=== PATIENT | male | born 2000 | race Caucasian/White ===

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

== ENCOUNTER → 2018-02-22 11:13 | Outpatient (CLI) | payer OTHER, SELFPAY | PROVIDERS: Family Provider Family Medicine; PCP Family Medicine; Visit Provider Specialist | DX: Z91.038 Other insect allergy status (principal) | CPT/HCPCS: 83520 ==

== ENCOUNTER 2018-03-16 00:27 | Emergency (ER) | payer OTHER, SELFPAY ==
[2018-03-16 00:28] VITALS: BP 137/79; PULSE 93; RESP 17; TEMP 37.1; O2SAT 100; BMI 23.2
--- NOTE | 2018-03-16 01:04 | CT_ITS ---
STUDY: CT ABDOMEN AND PELVIS WITH CONTRAST REASON FOR EXAM: Male, 17 years old. Abdominal pain with bright red diarrhea and elevated white blood cell count. RADIATION DOSAGE (If Supplied By Facility): CTDIvol = ( 12.64 ) mGy, DLP = ( 425.26 ) mGycm TECHNIQUE: Transaxial images were obtained from the dome of the diaphragm to the symphysis pubis without oral contrast. 100ML ml of Isovue 300 contrast was administered. Sagittal and coronal images were reconstructed. Individualized dose optimization techniques were used for this CT. COMPARISON: 07/10/2011. FINDINGS: The visualized lung bases are unremarkable. The visualized portions of the heart are within normal limits. Normal liver. Normal gallbladder and extrahepatic biliary system. There is mild splenomegaly. Normal pancreas. Normal bilateral adrenal glands. Normal right kidney. Normal left kidney. Normal visualized stomach. Normal small intestine. There is fecal retention. Oral contrast has not yet to the colon and the evaluation of the colon is somewhat limited. There is non-visualization of the appendix. There are few small nodes in the right lower quadrant. Normal abdominal aorta. Normal inferior vena cava. Normal retroperitoneum. Normal urinary bladder. There is small amount of free fluid in the pelvis. Normal abdominal wall. Normal osseous structures. CT/Abdomen/Pelvis WITH Contrast IMPRESSION: 1. Fecal retention. 2. The appendix is not definitely identified. 3. Few nodes in the right lower quadrant. 4. Free fluid in the pelvis. No drainable abscess is seen. 5. If symptoms persist, follow-up examination is recommended. Electronically Signed: Venkatesh Jimenez MD at 2:59 EDT Tel , Service support ,
--- NOTE | 2018-03-16 01:06 | ED.VIS.GEN ---
History of Present Illness Chief Complaint: Abd Pain Informant: Patient, Family Onset: Month(s) - 5 Context: Gradual Onset Timing: Intermittent Quality: ache, cramp Location: R side Current Severity: Moderate Maximum Severity: Severe Worsened by: nothing Relieved by: after diarrhea most of the time, but not x 2d Associated Symptoms: 2 episodes of BRBPR yesterday Narrative: Patient has been having abdominal discomfort, intermittent diarrhea which is a couple times a day on days that he has it, today he had 2 bouts of bloody diarrhea which is the first time that has happened. He has been malaised and having 5-10 pound weight loss in the past 2 months. Occasional nausea, he was nauseated earlier, but no emesis. No discomfort into his back. No urinary difficulty. Has not seen a doctor for any of this yet. Healthy otherwise prior to this. Past Medical History - Allergies and Home Meds Allergies/Adverse Reactions: Allergies amoxicillin Allergy (Verified 03/16/18 00:32) Anaphylaxis bee venom protein (honey bee) Allergy (Verified 03/16/18 00:32) Anaphylaxis Primary Care Physician: Edmundo Jimenez MD [Primary Care Provider] - Lives: With Family Smoking Status: Never smoker Drugs: None Review of Systems General: Reports: Malaise, Weight loss. Denies: Chills, Fever, Sweats Eyes: Denies: Visual changes - bilaterally, Diplopia ENT: Denies: Rhinorrhea, Sore throat Cardiovascular: Denies: Chest pain, Palpitations Respiratory: Denies: Dyspnea, Cough, Dyspnea on exertion Gastrointestinal: Reports: Abdominal pain, Nausea, Diarrhea, Hematochezia. Denies: Vomiting, Constipation, Melena Genitourinary: Denies: Dysuria, Hematuria, Frequency Musculoskeletal: Denies: Neck pain, Back pain, Extremity Pain Skin: Denies: Rash Neurological: Denies: Headache, Weakness, Numbness Physical Exam Vital Signs/Narrative: Vital Signs Temp Pulse Resp BP Pulse Ox 03/16/18 00:28 98.8 F 93 17 137/79 H 100 Inital Vital Signs reviewed: Yes General: Well nourished, Well developed Head: Normocephalic, Atraumatic Eyes: Perrl, EOMI ENT: Moist mucous membranes, No rhinorrhea Neck: Supple, Nontender Cardiovascular: Regular rate, Regular rhythm, No murmurs Respiratory: No distress, CTA bilaterally, Chest nontender Abdomen: Soft, Nondistended, No masses, Tender - Mildly throughout right lower quadrant, more of the tenderness is caudal to McBurney's point. No right upper quadrant tenderness, the rest of his abdominal exam is fairly benign., Hyperactive bowel sounds. Negative for: Guarding, Rebound tenderness Back: Nontender, Normal Inspection Extremities: Nontender, No edema Skin: Normal color, No rash Neurological: Alert, Oriented x3, Cranial nerves II-XII grossly intact, Normal Strength, Normal Sensation Psychological: Normal affect Diagnostic/Tx/Re-eval Laboratory Tests 03/16/18 03/16/18 03/16/18 Range/Units 01:30 01:20 01:20 WBC 14.5 H (4.4-11.0) K/mm3 RBC 4.93 (4.6-6.2) M/mm3 Hgb 14.6 (13.0-16.5) g/dl Hct 44.1 (40-54) % MCV 89.5 (80-94) fL MCH 29.6 (27.0-32.0) pg MCHC 33.1 (32-36) g/gl RDW 13.0 (11.6-14.6) % RDW Differential 42.1 (35.1-43.9) fl Plt Count 219 (150-450) K/mm3 MPV 9.7 (6.2-12.0) fl Immature Gran % (Auto) 0.100 (0.0-0.9) % Neut % (Auto) 73.2 H (47-70) % Lymph % (Auto) 11.1 L (19-41) % Bea[place]gard % (Auto) 13.3 H (0-10) % Eos % (Auto) 2.1 (0-5) % Baso % (Auto) 0.2 (0-1) % Absolute Neuts (auto) 10.6 H (2.0-7.7) X10^3/uL Absolute Lymphs (auto) 1.61 (0.83-4.51) X10^3/ul Total Counted Not Reportable Differential Comment SCANNED Diff Path Review September foll Sodium 140 (136-145) mmol/L Potassium 3.9 (3.5-5.1) mmol/L Chloride 103 (98-107) mmol/L Carbon Dioxide 34.0 H (21.0-32.0) mmol/L Anion Gap 3 L (5-15) BUN 8 (7-18) mg/dL Creatinine 1.00 (0.70-1.30) mg/dL Estim Creat Clear Calc 114.95 ml/min Est GFR (MDRD) Af Amer 123 (>60) mL/min Est GFR (MDRD) Non-Af 102 (>60) mL/min BUN/Creatinine Ratio 8.0 L (10-20) RATIO Glucose 100 (74-106) mg/dL Calcium 9.1 (8.5-10.1) mg/dL Total Bilirubin 1.10 H (0.20-1.00) mg/dL AST 14 L (15-37) U/L ALT 25 (16-61) U/L Alkaline Phosphatase 67 (45-117) U/L Total Protein 7.5 (6.4-8.2) g/dL Albumin 4.0 (3.2-5.0) g/dL Globulin 3.5 (2.2-4.2) g/dL Albumin/Globulin Ratio 1.1 (0.9-2.4) RATIO Lipase 91 (73-393) U/L Urine Color Yellow (Yellow) Urine Clarity Sl. Cloudy (Clear) Urine pH 8.0 (5.0 - 8.0) Ur Specific [place] 1.015 (1.002-1.030) Urine Protein Negative (Negative) mg/dl Urine Glucose (UA) Normal (Normal) mg/dl Urine Ketones Negative (Negative) mg/dl Urine Occult Blood Negative (Negative) /ul Urine Nitrite Negative (Negative) Urine Bilirubin Negative (Negative) mg/dL Urine Urobilinogen Normal (Normal) mg/dl Ur Leukocyte Esterase Negative (Negative) /ul Urine RBC 0 SEEN (0-5) /hpf Urine WBC 0 SEEN (0-5) /hpf Ur Squamous Epith Cells 0-5 SEEN (0-5) /hpf Amorphous Sediment 3+ PHOS Urine Bacteria 0 SEEN (None Seen) /hpf Urine Mucus 0 SEEN (<or=2+) /hpf Clinical Impression(s) from Imaging Studies Abdomen/Pelvis CT 03/16/18 01:04 IMPRESSION: 1. Fecal retention. 2. The appendix is not definitely identified. 3. Few nodes in the right lower quadrant. 4. Free fluid in the pelvis. No drainable abscess is seen. 5. If symptoms persist, follow-up examination is recommended. Electronically Signed: Venkatesh Jimenez MD at 2:59 EDT Tel , Service support , - Medical Decision Making Labs show nonspecific leukocytosis of 14.5. With the chronicity of his symptoms, my first concern is with possible inflammatory bowel disease. With the possible complications of that, I thought a CT was most appropriate in order to rule out the most pathology. This was performed with oral and IV contrast, and it shows nonspecific findings including some free fluid in the pelvis without any drainable abscess, fecal retention, and some lymphadenopathy in the right lower quadrant. He had a CT in the past that showed mesenteric lymphadenopathy, but I do not know if that simply is causing all of this. I think he will need follow-up with gastroenterology. Treated here with Bentyl, IV fluids, Toradol, he did have some improvement of rested comfortably. Recommend close outpatient follow-up and will give him a prescription for Bentyl to use as needed. ED Disposition - Plan for ED Patient: Disposition: Home or Assisted Living Chief Complaint: Abd Pain Diagnosis: Chronic diarrhea, RLQ abdominal pain, Hematochezia Instructions: ED Abdominal Pain Unkn Cause Prescriptions: Dicyclomine HCl [Bentyl] 20 mg PO TID PRN #20 cap PRN Reason: abdominal pain Referrals: Edmundo Jimenez MD [Primary Care Provider] - As soon as possible Zhen Rudd MD [NON-STAFF] - As soon as possible (call to see if taking new patients)
[2018-03-16] MEDS: Dicyclomine 20 MG/2 ML Vial IM (01:22)
[2018-03-16] MEDS: Ondansetron 4 MG/2 ML Vial IV (01:22)
[2018-03-16] MEDS: Ketorolac 30 MG/ML Syringe IV (01:22)
[2018-03-16] MEDS: 0.9% Normal Saline 1,000 ML 1000 ML IV (01:22)
[2018-03-16 01:33] LABS: Bacteria 0 SEEN /hpf (None Seen); Mucous, Urine 0 SEEN /hpf (<or=2+); Red Blood Cells-Urine 0 SEEN /hpf (0-5); White Blood Cells 0 SEEN /hpf (0-5)
[2018-03-16 01:36] LABS: Color, Urine Yellow (Yellow); Glucose, Dipstick Normal (Normal); Ketone-Dipstick Negative (Negative); Leukocyte Esterase-Dipstick Negative /ul (Negative); Nitrite-Dipstick Negative (Negative); Occult Blood-Urine Negative /ul (Negative); Protein-Dipstick Negative (Negative); Specific Gravity, Urine 1.015 (1.002-1.030); Urine Bilirubin Dipstick Negative (Negative); Urine Clarity Sl. Cloudy (Clear); Urine Urobilinogen Normal (Normal)
[2018-03-16 01:41] LABS: Absolute Lymphocyte Count 1.61 X10^3/ul (0.83-4.51); Absolute Neutrophil Count 10.6 X10^3/uL (2.0-7.7); Basophil# 0.03 X10^3/uL; Basophil% 0.2 % (0-1); Eosinophil# 0.31 X10^3/uL; Eosinophils% 2.1 % (0-5); Hematocrit 44.1 % (40-54); Hemoglobin 14.6 g/dl (13.0-16.5); Lymphocyte # 1.61 X10^3/ul (4.0); Lymphocyte % 11.1 % (19-41); Mean Corp Hgb Conc 33.1 g/gl (32-36); Mean Corpuscular Hgb 29.6 pg (27.0-32.0); Mean Corpuscular Volume 89.5 fL (80-94); Mean Platelet Vol. 9.7 fl (6.2-12.0); Monocyte# 1.93 X10^3/uL; Monocyte% 13.3 % (0-10); Neutrophil # 10.61 X10^3/uL (2.7-7.7); Neutrophil % 73.2 % (47-70); Platelet Count 219 K/mm3 (150-450); RBC Distribution Width SD 42.1 fl (35.1-43.9); Red Blood Count 4.93 M/mm3 (4.6-6.2); White Blood Count 14.5 K/mm3 (4.4-11.0)
[2018-03-16 01:42] LABS: Differential Indicated SCAN CRITERIA MET; POSITIVE COUNT NO; POSITIVE DIFFERENTIAL YES; POSITIVE MORPHOLOGY NO
[2018-03-16 01:42] LABS: Squamous Epithelial Cells - UA 0-5 SEEN /hpf (0-5)
[2018-03-16 01:43] LABS: Amorphous Sediment 3+ PHOS
[2018-03-16 01:50] LABS: ALB/GLOB Ratio 1.1 RATIO (0.9-2.4); AST(SGOT) 14 U/L (15-37); Alanine Aminotransfer ALT/SGPT 25 U/L (16-61); Alkaline Phosphatase 67 U/L (45-117); Anion Gap 3 (5-15); BUN 8 mg/dL (7-18); Calcium,Total 9.1 mg/dL (8.5-10.1); Chloride 103 mmol/L (98-107); EST Glomerular Filtration Rate 102 mL/min (>60); Est Glom Filt Rate - Afr Amer 123 mL/min (>60); Estimated Creatinine Clearance 114.95 ml/min; Globulin 3.5 g/dL (2.2-4.2); Glucose 100 mg/dL (74-106); Lipase 91 U/L (73-393); Potassium 3.9 mmol/L (3.5-5.1); Protein, Total 7.5 g/dL (6.4-8.2); Sodium Level 140 mmol/L (136-145)
[2018-03-16 01:59] LABS: Differential Comment SCANNED
[2018-03-16 03:23] VITALS: BP 120/60; PULSE 70; RESP 18; O2SAT 97
[2018-03-16 12:36] LABS: Pathologist Review Reviewed
== END 2018-03-16 03:26 | disposition home or self-care (01) ==
PROVIDERS: Emergency Provider Emergency Medicine; Family Provider Family Medicine; PCP Family Medicine
DX: R10.31 Right lower quadrant pain (principal); R19.7 Diarrhea, unspecified; K92.1 Melena; R11.0 Nausea; R59.1 Generalized enlarged lymph nodes
CPT/HCPCS: 74177; 80053; 81001; 83690; 85025; 96372; 96374; 96375; 99284; J7030; Q9967; J2405

== ENCOUNTER 2018-04-21 05:31 | Day surgery (SDC) | payer OTHER, SELFPAY ==
[2018-04-21] VITALS (15 sets, daily range): BP systolic 95–119; BP diastolic 59–89; PULSE 52–70; RESP 16–20; TEMP 36.6–36.9; O2SAT 94–100; BMI 24.2
--- NOTE | 2018-04-21 | EGD_PTH ---
PATIENT: ART JENNINGS LOC: EN U#:[id number] AGE/SX: 18/M ROOM: RE04/21/[address]: Dr. Alber Dubois MD : 2000 BED: DIS: 04/21/2018 SPEC #: [id number] RECD: 04/21/18 11:04 STATUS: VESTA GINO #: [id number] WENDI: 04/21/18 00:[address]: Alber Dubois DEPT: SURGICAL PATHOLOGY RECD BY: Tommie Michelle ENTERED: 04/21/18 11:05 SP TYPE: EGD BIOPSY OT DR: Dr. Edmundo Jimenez MD Tissues: A - Duodenum, NOS B - Gastric mucous membrane C - Esophageal mucous membrane D - Esophageal mucous membrane E - COLON BIOPSY Procedures: Special Stain Group II Surgery Specimen Level IV Alcian Blue/PAS (control) HEADER OPERATION: Colonoscopy, EGD (MOD) PRE-OP DIAGNOSIS: Right quadrant pain, hematochezia TISSUE SUBMITTED: A - Biopsy duodenum, B - Biopsy gastric antrum, H. pylori and path, C - Biopsy distal esophagus, D - Biopsy mid esophagus, E - Biopsy random colon MICROSCOPIC DIAGNOSIS A. Duodenum, biopsy: A fragment of duodenal mucosa with [place]'s gland hyperplasia and nonspecific chronic inflammation. B. Gastric antrum, biopsy: Mild gastritis. See microscopic description and comment. C. Distal esophagus, biopsy: Fragments of gastroesophageal mucosa with chronic inflammation. Intestinal metaplasia (goblet cell metaplasia) is not identified. See comment. D. Mid esophagus, biopsy: A fragment of squamous epithelium, no pathologic diagnosis. E. Colon, random biopsy: Fragments of colonic mucosa, no pathologic diagnosis. SJ:simeon 04/23/18 COMMENT B. The results of immunohistochemistry for Helicobacter pylori will be reported separately ([id number]). C. Alcian blue/PAS stain with matched control is used in the evaluation of the specimen. MICROSCOPIC DESCRIPTION Slides are reviewed. B. The specimen shows fragments of gastric mucosa with chronic inflammatory cell infiltrates in the lamina propria consisting of lymphocytes and plasma cells, consistent with mild chronic gastritis. GROSS DESCRIPTION A - Received in fixative is one container labeled with the patient's name and designated biopsy duodenum. The specimen consists of one irregular fragment of light campos soft tissue that measures 0.4 x 0.2 x 0.1 cm. The specimen is totally submitted in one cassette. B - Received in fixative is one container labeled with the patient's name and designated biopsy gastric antrum. The specimen consists of one irregular fragment of light campos soft tissue that measures 0.5 x 0.2 x 0.1 cm. The specimen is totally submitted in one cassette. C - Received in fixative is one container labeled with the patient's name and designated biopsy GE junction. The specimen consists of two irregular fragments of light campos soft tissue that in aggregate measure 0.5 x 0.2 x 0.1 cm. The specimen is totally submitted in one cassette. D - Received in fixative is one container labeled with the patient's name and designated biopsy mid esophagus. The specimen consists of one irregular fragment of light campos soft tissue that measures 0.4 x 0.3 x 0.1 cm. The specimen is totally submitted in one cassette. E - Received in fixative is one container labeled with the patient's name and designated random colon biopsy. The specimen consists of multiple irregular fragments of light campos soft tissue that in aggregate measure 1.5 x 0.6 x 0.1 cm. The specimen is totally submitted in one cassette. / SJ:rg 04/21/18 TC:3 CPT: 02733 x5, 44630
--- NOTE | 2018-04-21 06:30 | IMM_PTH ---
PATIENT: ART JENNINGS LOC: EN U#:[id number] AGE/SX: 18/M ROOM: RE04/21/[address]: Dr. Albre Dubois MD : 2000 BED: DIS: 04/21/2018 SPEC #: [id number] RECD: 04/21/18 14:22 STATUS: VESTA GINO #: [id number] WENDI: 04/21/18 06:[address]: Alber Dubois DEPT: IMMUNOHISTOCHEMISTRY RECD BY: Ya Myers ENTERED: 04/21/18 14:23 SP TYPE: IMMUNO OTHR DR: Dr. Edmundo Jimenez MD Tissues: B - Stomach, NOS Procedures: H Pylori (initial) PHYSICIAN & INSTITUTION [place] [id number] SPECIMEN INFORMATION: Tissue Source: B - Biopsy gastric antrum Clinical Info: Right quadrant pain, hematochezia Specimen Number: [id number] CPT code: 53716 METHODOLOGY: Deparaffinized sections of prefer/formalin-fixed tissue or PAP/DQ stained slides are incubated with monoclonal/polyclonal antibodies/oligonucleotide probes. Localization is made via biotin free immunoperoxidase method. Appropriate controls are performed and reacted as expected. Results on target cell population are indicated in the following table: RESULTS: ANTIBODY / CLONE RESULT Block B H Pylori (polyclonal) negative These tests were developed and their performance characteristics determined by [facility]. They may not have been cleared or approved by the U.S. Food and Drug Administration. The FDA has determined that such clearance or approval is not necessary. INTERPRETATION: B. Gastric antrum, biopsy: Negative for Helicobacter pylori organisms. SJ:simeon 04/23/18
--- NOTE | 2018-04-21 07:04 | OP.ENDO_ITS ---
Patient Name: Marck Oden Procedure Date: 04/21/2018 6:20 AM Date of : 2000 Age: 18 Procedure: Upper GI endoscopy Indications: Epigastric abdominal pain Providers: Alber Dubois MD Referring MD: Alber Dubois MD Medicines: Midazolam 5 mg IV, Meperidine 100 mg IV Complications: No immediate complications. Procedure: Pre-Anesthesia Assessment: - Prior to the procedure, a History and Physical was performed, and patient medications and allergies were reviewed. The patient's tolerance of previous anesthesia was also reviewed. The risks and benefits of the procedure and the sedation options and risks were discussed with the patient. All questions were answered, and informed consent was obtained. Prior Anticoagulants: The patient has taken no previous anticoagulant or antiplatelet agents. ASA Grade Assessment: I - A normal, healthy patient. After reviewing the risks and benefits, the patient was deemed in satisfactory condition to undergo the procedure. After obtaining informed consent, the endoscope was passed under direct vision. Throughout the procedure, the patient's blood pressure, pulse, and oxygen saturations were monitored continuously. The gastroscope was introduced through the mouth, and advanced to the second part of duodenum. The upper GI endoscopy was accomplished without difficulty. The patient tolerated the procedure well. Moderate Sedation: Moderate (conscious) sedation was personally administered by the endoscopist. The following parameters were monitored: oxygen saturation, heart rate, blood pressure, and response to care. Total physician intraservice time was 15 minutes. Scope In: 6:36:58 AM Scope Out: 6:41:03 AM Total Procedure Duration Time 0 hours 4 minutes 5 seconds Findings: The examined esophagus was normal. The Z-line was regular and was found 41 cm from the incisors. Biopsies were taken with a cold forceps for histology. Diffuse mildly erythematous mucosa without bleeding was found in the gastric antrum. Biopsies were taken with a cold forceps for histology. The examined duodenum was normal. Biopsies were taken with a cold forceps for histology. Impression: - Normal esophagus. - Z-line regular, 41 cm from the incisors. Biopsied esophagus distally and in mid portion - Erythematous mucosa in the antrum. Biopsied. - Normal examined duodenum. Biopsied. Recommendation: - Discharge patient to home. - Resume previous diet. - Continue present medications. - Telephone my office for pathology results in 1 week. Procedure Code(s): --- Professional --- 37416, Esophagogastroduodenoscopy, flexible, transoral; with biopsy, single or multiple 76245, 59, Moderate sedation services provided by the same physician or other qualified health disabilities caregiver performing the diagnostic or therapeutic service that the sedation supports, requiring the presence of an independent trained observer to assist in the monitoring of the patient's level of consciousness and physiological status; initial 15 minutes of intraservice time, patient age 5 years or older Diagnosis Code(s): --- Professional --- K31.89, Other diseases of stomach and duodenum R10.13, Epigastric pain CPT copyright 2017 [employer]. All rights reserved. The codes documented in this report are preliminary and upon coding machine operator review may be revised to meet current compliance requirements. Alber Dubois MD 04/21/2018 7:04:42 AM This report has been signed electronically. Number of Addenda: 0 Note Initiated On: 04/21/2018 6:20 AM
--- NOTE | 2018-04-21 07:08 | OP.ENDO_ITS ---
Patient Name: Marck Oden Procedure Date: 04/21/2018 6:43 AM Date of : 2000 Age: 18 Procedure: Colonoscopy Indications: Generalized abdominal pain Providers: Alber Dubois MD Referring MD: Alber Dubois MD Medicines: Midazolam 1 mg IV, Meperidine 100 mg IV Patient Profile: Last Colonoscopy: none. The patient's first colonoscopy is today. Complications: No immediate complications. Procedure: Pre-Anesthesia Assessment: - Prior to the procedure, a History and Physical was performed, and patient medications and allergies were reviewed. The patient's tolerance of previous anesthesia was also reviewed. The risks and benefits of the procedure and the sedation options and risks were discussed with the patient. All questions were answered, and informed consent was obtained. Prior Anticoagulants: The patient has taken no previous anticoagulant or antiplatelet agents. ASA Grade Assessment: I - A normal, healthy patient. After reviewing the risks and benefits, the patient was deemed in satisfactory condition to undergo the procedure. After I obtained informed consent, the scope was passed under direct vision. Throughout the procedure, the patient's blood pressure, pulse, and oxygen saturations were monitored continuously. The colonoscope was introduced through the anus and advanced to the cecum, identified by appendiceal orifice and ileocecal valve. The colonoscopy was performed without difficulty. The patient tolerated the procedure well. The quality of the bowel preparation was good. The appendiceal orifice was photographed. Moderate Sedation: Moderate (conscious) sedation was personally administered by the endoscopist. The following parameters were monitored: oxygen saturation, heart rate, blood pressure, and response to care. Total physician intraservice time was 15 minutes. Scope In: 6:44:42 AM Scope Withdrawal Time 0 hours 9 minutes 36 seconds Scope Out: 6:58:56 AM Total Procedure Duration Time 0 hours 14 minutes 14 seconds Findings: The perianal and digital rectal examinations were normal. The colon (entire examined portion) appeared normal. Biopsies for histology were taken with a cold forceps from the entire colon for evaluation of microscopic colitis. Impression: - The entire examined colon is normal. Biopsied. Recommendation: - Discharge patient to home. - Resume previous diet. - Continue present medications. - Telephone my office for pathology results in 1 week. - Repeat colonoscopy age 48 per protocol. Procedure Code(s): --- Professional --- 97415, Colonoscopy, flexible; with biopsy, single or multiple 06584, 59, Moderate sedation services provided by the same physician or other qualified health career transition specialist performing the diagnostic or therapeutic service that the sedation supports, requiring the presence of an independent trained observer to assist in the monitoring of the patient's level of consciousness and physiological status; initial 15 minutes of intraservice time, patient age 5 years or older Diagnosis Code(s): --- Professional --- R10.84, Generalized abdominal pain CPT copyright 2017 [employer]. All rights reserved. The codes documented in this report are preliminary and upon offender job retention specialist review may be revised to meet current compliance requirements. Alber Dubois MD 04/21/2018 7:07:55 AM This report has been signed electronically. Number of Addenda: 0 Note Initiated On: 04/21/2018 6:43 AM
== END 2018-04-21 08:51 | disposition home or self-care (01) ==
LOC: EN 05:32 → AC 05:33
PROVIDERS: Family Provider Family Medicine; PCP Family Medicine; Referring Provider Surgery; Visit Provider Surgery
PROC: 0DJD8ZZ Inspection of Lower Intestinal Tract, Via Natural or Artificial Opening Endoscopic (ICD-10-PCS; CPT 45378; principal; 2018-04-21 06:25)
DX: K29.50 Unspecified chronic gastritis without bleeding (principal); K92.1 Melena; R19.7 Diarrhea, unspecified; J45.909 Unspecified asthma, uncomplicated; R53.83 Other fatigue; F17.220 Nicotine dependence, chewing tobacco, uncomplicated
CPT/HCPCS: 43239; 45380; 88305; 88313; 88342; 99152; 99153; J7120

== ENCOUNTER → 2018-07-10 16:52 | Outpatient (CLI) | payer OTHER, SELFPAY ==
[2018-07-10 14:04] VITALS: BMI 24.9
== END ==
PROVIDERS: Family Provider Family Medicine; PCP Family Medicine; Referring Provider Physician Assistant Medical; Visit Provider Physician Assistant Medical
DX: N39.0 Urinary tract infection, site not specified (principal); R10.9 Unspecified abdominal pain; R19.7 Diarrhea, unspecified
CPT/HCPCS: 87086

== ENCOUNTER → 2018-07-12 11:19 | Outpatient (CLI) | payer OTHER, SELFPAY ==
[2018-07-12 11:18] VITALS: BMI 24.9
[2018-07-12 18:50] LABS: Chlamydia Trachomatis by PCR POSITIVE (Negative); Neisserai gonorrhoeae by PCR Negative (Negative); Probe Check PASS
== END ==
PROVIDERS: Family Provider Family Medicine; PCP Family Medicine; Visit Provider Family Medicine
DX: N34.2 Other urethritis (principal)
CPT/HCPCS: 87491; 87591

== ENCOUNTER → 2018-08-05 10:38 | Outpatient (CLI) | payer OTHER, SELFPAY ==
[2018-07-12 11:18] VITALS: BMI 24.9
[2018-08-05 15:37] LABS: Chlamydia Trachomatis by PCR Negative (Negative); Neisserai gonorrhoeae by PCR Negative (Negative); Probe Check PASS; Sample Adequacy Control PASS; Specimen Processing Control PASS
[2018-08-26 14:37] LABS: HIV - WCH Non-Reactive (Nonreactive)
[2018-08-27 01:30] LABS: Rapid Plasmin Reagin (RPR) NONREACTIVE (NONREACTIVE)
[2018-08-27 14:31] LABS: HEPATITIS B SURFACE AG Negative (Negative); Hep C Antibodies <0.1 s/co ratio (0.0-0.9)
== END ==
PROVIDERS: Family Provider Family Medicine; PCP Family Medicine; Visit Provider Family Medicine
DX: A64 Unspecified sexually transmitted disease (principal)
CPT/HCPCS: 36415; 86592; 86703; 86803; 87340; 87491; 87591

== ENCOUNTER 2022-03-30 03:06 | Emergency (ER) | payer OTHER, SELFPAY ==
[2022-03-30 03:08] VITALS: BP 139/91; PULSE 82; RESP 18; TEMP 36.5; O2SAT 97; BMI 26.1
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
[2022-03-30] MEDS: Diphth,Pertuss(Acell),Tet Vac 0.5 ML Vial IM (04:07)
[2022-03-30 04:24] VITALS: BP 112/75; PULSE 77; RESP 16; O2SAT 99
== END 2022-03-30 04:25 | disposition home or self-care (01) ==
PROVIDERS: Emergency Provider Emergency Medicine; PCP Family Medicine; Visit Provider Emergency Medicine
DX: S06.0X0A Concussion without loss of consciousness, initial encounter (principal); F10.129 Alcohol abuse with intoxication, unspecified; S60.512A Abrasion of left hand, initial encounter; S80.212A Abrasion, left knee, initial encounter; S00.81XA Abrasion of other part of head, initial encounter; R11.10 Vomiting, unspecified; Z23 Encounter for immunization; V86.69XA Passenger of other special all-terrain or other off-road motor vehicle injured in nontraffic accident, initial encounter; J45.909 Unspecified asthma, uncomplicated
CPT/HCPCS: 70450; 72125; 73564; 90471; 90715; 99282